=== PATIENT | male | born 1975 | race Caucasian/White ===

== ENCOUNTER 2024-04-18 06:04 | Inpatient (IN) | payer BC, SELFPAY ==
[2024-04-14 09:17] LABS: Hematocrit 40.1 % (39.0-52.0); Hemoglobin 13.7 g/dL (13.0-18.0); Mean Corp Hgb Conc. 34.2 g/dL (33.0-37.0); Mean Corpuscular Hgb 27.6 pg (27.0-31.0); Mean Corpuscular Volume 80.7 fL (80.0-94.0); Mean Platelet Volume 9.5 fL (7.4-10.4); Platelet Count 378 10^3/uL (130-400); Red Blood Cell Count 4.97 10^6/uL (4.70-6.10); White Blood Cell Count 6.8 10^3/uL (4.8-10.8)
[2024-04-14 09:27] LABS: INR 1.02; PT 13.2 Sec (11.4-14.6)
[2024-04-14 09:28] LABS: APTT 30.2 Sec (23.4-35.0)
[2024-04-14 09:55] VITALS: BMI 39.6
[2024-04-14 10:43] LABS: ALT (SGPT) 40 U/L (0-50); AST (SGOT) 31 U/L (17-59); Albumin 4.4 g/dl (3.5-5.0); Alkaline Phosphatase 68 U/L (38-126); Blood Urea Nitrogen 14 mg/dl (9-20); Calcium 9.6 mg/dl (8.4-10.2); Carbon Dioxide 25 mmol/L (22-30); Chloride 106 mmol/L (98-107); Estimated Creatinine Clearance 117 ml/min; Glucose 83 mg/dl (70-99); Potassium 4.5 mmol/L (3.5-5.1); Sodium 139 mmol/L (135-145); Total Bilirubin 0.7 mg/dl (0.2-1.3); Total Protein 6.9 g/dl (6.3-8.2); eGFR > 60.00
[2024-04-18] VITALS (13 sets, daily range): BP systolic 104–144; BP diastolic 61–82; BMI 39.6
[2024-04-18] MEDS: HEPARIN 5000 UNITS SC ×2 (06:53→20:53)
[2024-04-18] MEDS: TYLENOL 1000 MG PO (06:53)
[2024-04-18] MEDS: NEURONTIN 300 MG PO (06:53)
[2024-04-18] MEDS: NORMOSOL-R 1000 IV (06:55)
--- NOTE | 2024-04-18 10:46 | W.IMMPOSTOP ---
Surgical Immed Post Op Note
-
Primary Surgeon: Amado Lee MD
Assisting Surgeon: Nighat Luo
Pre-op Diagnosis: Cecal tumor
Post-op Diagnosis: same
Procedure Performed: Right colectomy
Anesthesia Type: General
Specimen / Cultures: terminal ileum and cecal tumor
Estimated Blood Loss: 15 cc
Complications: None
Operative Findings:Cecal tumor
[2024-04-18] MEDS: D5/0.9% SODIUM CHLORIDE 1000 IV ×2 (11:44→22:15)
[2024-04-18] MEDS: NEURONTIN 100 MG PO ×2 (16:43→22:15)
[2024-04-18] MEDS: COLACE 100 MG PO (20:53)
[2024-04-19] MEDS: ZOFRAN 4 MG IV (02:28)
[2024-04-19 03:17] VITALS: BP 147/80
[2024-04-19] MEDS: COMPAZINE 5 MG IV (07:10)
[2024-04-19] MEDS: ROXICODONE 5 MG PO ×2 (07:10→15:26)
[2024-04-19 07:41] VITALS: BP 158/89
[2024-04-19] MEDS: HEPARIN 5000 UNITS SC ×2 (08:25→20:26)
[2024-04-19] MEDS: COLACE 100 MG PO ×2 (08:25→20:26)
[2024-04-19] MEDS: NEURONTIN 100 MG PO ×3 (08:25→22:45)
[2024-04-19] MEDS: PEPCID 20 MG IV (08:26)
[2024-04-19] MEDS: NSS (PRESERVATIVE FREE) 8 ML IV (08:26)
[2024-04-19] MEDS: D5/0.9% SODIUM CHLORIDE 1000 IV (09:58)
--- NOTE | 2024-04-19 10:40 | CM ---
Reviewed the chart notes and spoke with the patient and his spouse at the bedside. The patient resides with his spouse in a one story home with two steps to enter. The patient reports no DME/VN/SNF in the past. The patient confirmed his pharmacy
of choice is the [facility] [address] [facility]. CM continues to be available to patient/family and is monitoring medical plan for needs at discharge.
Plan: Discharge to home when medically stable. No additional needs anticipated.
[2024-04-19 11:20] VITALS: BP 171/92
[2024-04-19 15:49] VITALS: BP 159/100
--- NOTE | 2024-04-19 16:24 | W.PN.GENERIC ---
Assessment / Plan
-
S/p Right colecotmy POD #1
Stable.
Blood BMs most likely from the anastomosis, which usually stop spontaneously
He is hemodynamcall stable
Will observe
Will check CBC in AM
Will restart his BP meds
OOB and ambulate
Await path
Physician Progress Note
Subjective
NO complaints. Had 3 bloody BMs. No N/V
Objective
Vital Signs
Temp Pulse Resp BP Pulse Ox
98.6 F 92 18 159/100 95
04/19/24 15:49 04/19/24 15:49 04/19/24 15:49 04/19/24 15:49 04/19/24 15:49
Lab Results
04/14/24 07:12
04/14/24 07:12
Abdomen - soft ND NT. Dsg - intact
[2024-04-19 20:30] VITALS: BMI 39.6
[2024-04-19 23:15] VITALS: BP 140/83
[2024-04-20 06:38] LABS: Hematocrit 31.1 % (39.0-52.0); Hemoglobin 10.7 g/dL (13.0-18.0); Mean Corp Hgb Conc. 34.4 g/dL (33.0-37.0); Mean Corpuscular Hgb 27.9 pg (27.0-31.0); Mean Platelet Volume 9.4 fL (7.4-10.4); Platelet Count 308 10^3/uL (130-400); Red Blood Cell Count 3.84 10^6/uL (4.70-6.10); White Blood Cell Count 12.4 10^3/uL (4.8-10.8)
[2024-04-20 07:25] VITALS: BP 137/85
[2024-04-20 09:00] VITALS: BMI 39.6
[2024-04-20] MEDS: HEPARIN 5000 UNITS SC (10:02)
[2024-04-20] MEDS: PEPCID 20 MG IV (10:02)
[2024-04-20] MEDS: NEURONTIN 100 MG PO ×3 (10:03→21:14)
[2024-04-20] MEDS: PROCARDIA XL (EXTENDED RELEASE) 30 MG PO (10:03)
[2024-04-20] MEDS: FLOMAX 0.4 MG PO (10:04)
[2024-04-20] MEDS: NSS (PRESERVATIVE FREE) 8 ML IV (10:04)
[2024-04-20] MEDS: ZESTRIL 40 MG PO (10:04)
[2024-04-20] MEDS: COLACE 100 MG PO ×2 (10:04→21:14)
[2024-04-20] MEDS: ROXICODONE 5 MG PO ×2 (10:06→21:13)
--- NOTE | 2024-04-20 11:08 | CM ---
Reviewed the chart notes and spoke with the patient in the hallway. Patient ambulating ad kourtney. CM continues to be available to patient/family and is monitoring medical plan for needs at discharge.
Plan: Discharge to home when medically stable. No needs anticipated at this time.
[2024-04-20 15:20] VITALS: BP 88/55
[2024-04-20 16:48] LABS: Hematocrit 29.1 % (39.0-52.0); Hemoglobin 9.6 g/dL (13.0-18.0); Mean Corpuscular Hgb 27.4 pg (27.0-31.0); Mean Corpuscular Volume 83.1 fL (80.0-94.0); Mean Platelet Volume 9.9 fL (7.4-10.4); Platelet Count 294 10^3/uL (130-400); Red Cell Dist. Width 13.9 % (11.5-14.5); White Blood Cell Count 12.8 10^3/uL (4.8-10.8)
--- NOTE | 2024-04-20 18:17 | W.PN.GENERIC ---
Addendum entered and electronically signed by Amado Lee MD 05/04/24 08:58:
His GI bleeding with low Hg is due to acute blood loss anemia.
Original Note:
Assessment / Plan
-
S/p right colectomy POD #2
Still with bloody BMS - most likely bleeding from the anastomosis
Hemodynamicall stable even though Hg has drifted down to 9.6
Will give Tranexemic Acid IV
WIll follow Hg
May need colonoscopy and/or surgical exploration if bleeding continues
Physician Progress Note
Subjective
No complaints. Denies abdominal pain, lightheadness, or dizziness. Still having several bloddy BMs
Objective
Vital Signs
Temp Pulse Resp BP Pulse Ox
98.5 F 112 18 88/55 97
04/20/24 15:20 04/20/24 15:20 04/20/24 15:20 04/20/24 15:20 04/20/24 15:20
Lab Results
04/20/24 16:28
04/14/24 07:12
Abdomen - soft ND NT. Dsg - CDI
[2024-04-20 18:45] VITALS: BP 98/64
[2024-04-20 19:39] LABS: Hematocrit 27.7 % (39.0-52.0); Hemoglobin 9.8 g/dL (13.0-18.0); Mean Corp Hgb Conc. 35.4 g/dL (33.0-37.0); Mean Corpuscular Hgb 28.1 pg (27.0-31.0); Mean Corpuscular Volume 79.4 fL (80.0-94.0); Mean Platelet Volume 9.7 fL (7.4-10.4); Platelet Count 295 10^3/uL (130-400); Red Blood Cell Count 3.49 10^6/uL (4.70-6.10); Red Cell Dist. Width 13.9 % (11.5-14.5); White Blood Cell Count 12.8 10^3/uL (4.8-10.8)
[2024-04-20] MEDS: TRANEXAMIC ACID 100 IV (19:50)
[2024-04-20] MEDS: LR 500 IV (19:51)
[2024-04-20 19:55] LABS: INR 1.08
[2024-04-20 19:56] LABS: APTT 28.1 Sec (23.4-35.0)
[2024-04-20 19:57] LABS: Blood Urea Nitrogen 11 mg/dl (9-20); Calcium 8.6 mg/dl (8.4-10.2); Carbon Dioxide 26 mmol/L (22-30); Chloride 103 mmol/L (98-107); Estimated Creatinine Clearance > 125 ml/min; Glucose 120 mg/dl (70-99); Potassium 3.2 mmol/L (3.5-5.1); Sodium 135 mmol/L (135-145); eGFR > 60.00
[2024-04-20 23:36] VITALS: BP 108/63
[2024-04-21] MEDS: LR 500 IV (00:15)
[2024-04-21] MEDS: LR IV ×2 (00:18→10:33)
[2024-04-21] MEDS: TRANEXAMIC ACID 100 IV (04:02)
[2024-04-21] MEDS: ZOFRAN 4 MG IV ×3 (05:05→20:01)
--- NOTE | 2024-04-21 05:12 | PTCARENOTE ---
0500 - while in the bathroom to have a BM, pt also vomited 100mL light green/yellow bilious emesis. Pt was given PRN IV Zofran. Assessment ongoing.
[2024-04-21 05:50] LABS: Hematocrit 27.4 % (39.0-52.0); Hemoglobin 9.4 g/dL (13.0-18.0); Mean Corp Hgb Conc. 34.3 g/dL (33.0-37.0); Mean Corpuscular Hgb 27.6 pg (27.0-31.0); Mean Corpuscular Volume 80.6 fL (80.0-94.0); Mean Platelet Volume 9.7 fL (7.4-10.4); Platelet Count 288 10^3/uL (130-400); Red Cell Dist. Width 13.8 % (11.5-14.5); White Blood Cell Count 11.7 10^3/uL (4.8-10.8)
[2024-04-21 06:17] LABS: Blood Urea Nitrogen 14 mg/dl (9-20); Calcium 8.4 mg/dl (8.4-10.2); Carbon Dioxide 23 mmol/L (22-30); Chloride 103 mmol/L (98-107); Estimated Creatinine Clearance > 125 ml/min; Glucose 117 mg/dl (70-99); Potassium 3.5 mmol/L (3.5-5.1); Sodium 135 mmol/L (135-145); eGFR > 60.00
[2024-04-21 07:35] VITALS: BP 141/80
[2024-04-21] MEDS: COLACE PO (09:08)
[2024-04-21] MEDS: NEURONTIN 100 MG PO (09:09)
[2024-04-21] MEDS: PROCARDIA XL (EXTENDED RELEASE) 30 MG PO (09:09)
[2024-04-21] MEDS: FLOMAX 0.4 MG PO (09:09)
[2024-04-21] MEDS: ZESTRIL 40 MG PO (09:09)
[2024-04-21] MEDS: NSS (PRESERVATIVE FREE) 8 ML IV (09:09)
[2024-04-21] MEDS: PEPCID 20 MG IV (09:10)
--- NOTE | 2024-04-21 10:02 | W.PN.GENERIC ---
Assessment / Plan
-
S/p Right colectomy POD #3
It appears that bleeding has stopped. Hg remains stable and BMs less bloody
OOB and ambulate
If Hg tomorrow remains stable, will consider DC
Physician Progress Note
Subjective
Feeling tired. Had a BM around 5AM, which was less bloody but felt nauseous and vomited. Currently, he had no N/V
Objective
Vital Signs
Temp Pulse Resp BP Pulse Ox
99.0 F 97 18 141/80 93
04/21/24 07:35 04/21/24 07:35 04/21/24 07:35 04/21/24 07:35 04/21/24 07:35
Lab Results
04/21/24 05:37
04/21/24 05:37
Abdomen - mild distension. Incision - CDI
--- NOTE | 2024-04-21 10:49 | CM ---
Reviewed the chart notes. Per notes, possible discharge tomorrow. CM continues to be available to patient/family and is monitoring medical plan for needs at discharge.
Plan: Discharge to home with no anticipated needs.
--- NOTE | 2024-04-21 12:34 | OR.RPT ---
Operative Report
Operative Report
Patient Name: Dandre Acosta Jr
Date of : 1975
Date of Operation: April 18, 2024
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
Postoperative Diagnosis: Same
Surgeon: Amado Lee M.D.
Operation: Right colectomy - 99468
Anesthesia: General
Estimated Blood Loss: 15 cc
Drains: None
Specimen: Terminal ileum and cecum
Complications: �None
Procedure:
The patient was taken to the operating room and placed in the usual supine position. After adequate general endotracheal anesthesia was established, the patient's abdomen was prepped and draped in the usual sterile fashion. At this time, a McBurney
incision was made with a #10 blade, and this was taken through the skin into the subcutaneous tissue. The fascia was divided, and underlying muscles were split along the course of the muscle fibers, and the transversalis fascia and peritoneum were
opened. The abdomen was entered and the cecum and terminal ileum were identified. This was delivered through the incision. Next, the extracorporeal anastomosis was performed by using [id number] and an anastomosis using a HERMAN stapler and #3-0
Prolene in a running fashion. Good hemostasis was obtained at the staple lines. The anastomosis intestine was placed back into the abdomen. At this time, the fascia with the number #1 Vicryl suture in a running fashion. The subcutaneous tissue was
approximately with #3-0 Vicryl in a running fashion. The skin was approximated with #4-0 Monocryl in a running subcutaneous fashion. The Steri-Strips and sterile dressings were applied to the incisions. The patient tolerated the procedure well. The
final instrument, needle, and sponge counts were correct. The patient was transferred to the recovery room.
[2024-04-21] MEDS: D5/0.45%NSS with KCL 20 MEQ 1000 IV ×2 (14:50→22:50)
[2024-04-21 15:30] VITALS: BP 124/71
[2024-04-21 15:57] VITALS: BMI 39.6
[2024-04-21] MEDS: TUMS 1 TABLET PO (23:00)
[2024-04-21 23:37] VITALS: BP 127/70
[2024-04-22 06:13] LABS: Hematocrit 25.7 % (39.0-52.0); Hemoglobin 8.8 g/dL (13.0-18.0); Mean Corp Hgb Conc. 34.2 g/dL (33.0-37.0); Mean Corpuscular Hgb 27.5 pg (27.0-31.0); Mean Corpuscular Volume 80.3 fL (80.0-94.0); Mean Platelet Volume 10.1 fL (7.4-10.4); Platelet Count 281 10^3/uL (130-400); Red Cell Dist. Width 13.7 % (11.5-14.5); White Blood Cell Count 8.5 10^3/uL (4.8-10.8)
[2024-04-22] MEDS: D5/0.45%NSS with KCL 20 MEQ 1000 IV (06:40)
[2024-04-22 07:25] VITALS: BP 111/53
[2024-04-22] MEDS: ZESTRIL PO (07:44)
[2024-04-22] MEDS: PROCARDIA XL (EXTENDED RELEASE) PO (07:44)
[2024-04-22] MEDS: NSS (PRESERVATIVE FREE) 8 ML IV (07:45)
[2024-04-22] MEDS: FLOMAX 0.4 MG PO (07:45)
[2024-04-22] MEDS: PEPCID 20 MG IV (07:45)
--- NOTE | 2024-04-22 11:52 | W.PN.GENERIC ---
Addendum entered and electronically signed by Amado Lee MD 05/04/24 09:00:
His low Hg is multifactorial due to acute blood loss anemia and dilutional with IVF
Original Note:
Assessment / Plan
-
S/p right colectomy POD #4
No obvious evidence of active bleeding
dec Hg from yesterday most likely dilutional with IVF
black tarry stool indicates old blood
Diarrhea and nausea are known side effect of Tranexamic acid - Will continue to observe
Will DC IVF and restart diet
Check Hg tomorrow - if he continues to do well with stable Hg, possible dc home tomorrow
Physician Progress Note
Subjective
Feeling better. His BMs have changed to watery black tarry stool. Nausea better. No vomiting since yesterday
Objective
Vital Signs
Temp Pulse Resp BP Pulse Ox
99.9 F 84 16 111/53 97
04/22/24 07:25 04/22/24 07:25 04/22/24 07:25 04/22/24 07:44 04/22/24 07:25
Lab Results
04/22/24 05:23
04/21/24 05:37
Abdomen - soft, ND, NT. Incisions - CDI
Cor -RRR
Pul - CTA
[2024-04-22 15:18] VITALS: BP 142/74
[2024-04-22] MEDS: ZOFRAN 4 MG IV (17:18)
[2024-04-22 23:19] VITALS: BP 126/71
[2024-04-23 06:17] LABS: Hematocrit 27.3 % (39.0-52.0); Hemoglobin 9.6 g/dL (13.0-18.0); Mean Corp Hgb Conc. 35.2 g/dL (33.0-37.0); Mean Corpuscular Hgb 27.6 pg (27.0-31.0); Mean Corpuscular Volume 78.4 fL (80.0-94.0); Mean Platelet Volume 10.1 fL (7.4-10.4); Platelet Count 335 10^3/uL (130-400); Red Blood Cell Count 3.48 10^6/uL (4.70-6.10); Red Cell Dist. Width 13.5 % (11.5-14.5); White Blood Cell Count 10.6 10^3/uL (4.8-10.8)
[2024-04-23 07:33] VITALS: BP 153/90
[2024-04-23] MEDS: PEPCID 20 MG IV (08:24)
[2024-04-23] MEDS: NSS (PRESERVATIVE FREE) 8 ML IV (08:24)
[2024-04-23] MEDS: FLOMAX 0.4 MG PO (08:25)
[2024-04-23] MEDS: ZESTRIL 40 MG PO (08:25)
[2024-04-23] MEDS: PROCARDIA XL (EXTENDED RELEASE) 30 MG PO (08:25)
--- NOTE | 2024-04-23 10:24 | W.DS.TRANS ---
Addendum entered and electronically signed by Amado Lee MD 05/04/24 09:05:
The final pathology revealed giant inflammatory polyp (2.1 cm) and incidental appendicitis, which are his final diagnoses. There was no mucosal Schwann cell hamartoma, which is not one of the diagnosis.
Original Note:
DC Summary - Cleaning Maid
-
Discharge Instructions:
Sleep Apnea Risk High
Discharge Diagnosis/Procedures Colon tumor
Diet No restrictions
Activity No strenuous activity,As tolerated
Driving Restrictions Not until seen by your Dr
Bathing Restrictions OK to Shower
Instructions:
Stand-Alone Forms:
Changes to Home Medications: No
Discharge Medications:
DC Medications w/original date entered in [employer]
Miralax 1 dose PO PRE OP 04/13/24
Vitamin D3 1 cap PO DAILY Supplement 04/13/24
acetaminophen 650 mg tablet,extended release 1,300 mg PO PRN PRN pain 04/13/24
lisinopril 40 mg tablet 40 mg PO DAILY Blood Pressure 04/13/24
multivitamin with minerals-folic acid 0.4 mg tablet 1 tab PO DAILY Supplement 04/13/24
nifedipine 30 mg tablet,extended release 30 mg PO DAILY Blood Pressure 04/13/24
tamsulosin 0.4 mg capsule 0.4 mg PO DAILY Urinary Issue 04/13/24
vitamin E 400 unit tablet 45 mg PO DAILY Supplement 04/13/24
zinc acetate 50 mg (zinc) capsule 50 mg PO DAILY Supplement 04/13/24
Home Medication Changes
Pending Results: No
--- NOTE | 2024-04-23 13:39 | CM ---
Patient seen at bedside. Patient states that he has no needs for discharge at this time. CM will remain available to follow for discharge needs.
Plan; home with no needs.
--- NOTE | 2024-04-25 13:41 | PN.CDI ---
CDI
- -
CDI:
Physician Documentation Request
Admit Date: 04/18/24 06:04
Dear Doctor Jesus,
Patient admitted with right colon tumor s/p right colectomy.
04/20 PN, HR 112, BP 88/55 'Still with bloody BMS - most likely bleeding from the anastomosis.'
04/22 PN,'dec Hg from yesterday most likely dilutional with IVF.
04/14 Hgb 13.7
04/23 Hgb 9.6
Please provide in your note the likely etiology/ etiologies of decreased Hgb:
Multifactorial due to acute blood loss anemia and dilutional with IVF
Acute blood loss anemia only
Dilutional from IVF only
Other
Use of terms such as suspected, likely, concern for, or probable (associated with a specific diagnosis that is being evaluated, monitored, or treated as if it exists) are acceptable and can be coded in the inpatient setting, when documented at the
time of discharge.
Thank you,
Zee MENDEZ,RN,CCDS
CDI Specialist
Available via [employer] text
Please use your independent medical judgment in providing your response.
--- NOTE | 2024-04-25 15:35 | PN.CDI ---
Addendum entered and electronically signed by Alicia Nielson 04/28/24 08:15:
Please, disregard this query, made by mistake
Original Note:
CDI
- -
CDI:
Physician Documentation Request
Admit Date: [f_Reg Admit Date Time]
Dear Doctor Jesus
Please review the following and provide your response in the progress notes.
Clinical Indicators:
The diagnosis of Inflammatory polyp and Focal acute appendicitis was included in the signed Path report
Additional clinical indicators in the chart include:
A. Terminal ileum and cecum, resection:
� Giant inflammatory polyp (2.1 cm).
� Colonic mucosa with hyperplastic changes.
� Focal acute appendicitis.
� Three benign lymph nodes.
� Viable resection margins.
Please indicate in your progress notes if you are in agreement that the above diagnosis is valid for this patient:
____ Inflammatory colon polyp is a valid diagnosis (Please include it in your progress notes)
Acute appendicitis is a valid diagnosis (Please include it in your progress note)
____ Inflammatory colon polyp is not a valid diagnosis for this patient
Acute appendicitis is not a valid diagnosis for this patient
____ Inflammatory colon polyp is not yet confirmed but remains a suspected condition
Acute appendicitis is not yet confirmed but remains a suspected condition
____ - Other
Use of terms such as suspected, likely, concern for, or probable are acceptable for a diagnosis that is being evaluated, monitored or treated as if it exists and can be coded in the inpatient setting, when documented at the time of discharge.
Thank you,
[f_Mis Current User]
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
Please use your independent medical judgment in providing your response.
--- NOTE | 2024-04-26 13:40 | PN.CDI ---
CDI
- -
CDI:
Physician Documentation Request
Admit Date: [f_Reg Admit Date Time]
Dear Doctor Jesus
Please review the following and provide your response in the progress notes.
Clinical Indicators:
The diagnosis of Focal Acute Appendicitis was included in the signed path report.
A. Terminal ileum and cecum, resection:
� Giant inflammatory polyp (2.1 cm).
� Colonic mucosa with hyperplastic changes.
� Focal acute appendicitis.
� Three benign lymph nodes.
� Viable resection margins.
Please indicate in your progress notes if you are in agreement that the above diagnosis is valid for this patient:
____ Acute Appendicitis is a valid diagnosis (Please include it in your progress notes)
____ Acute Appendicitisis not a valid diagnosis for this patient
__ Acute Appendicitis is not yet confirmed but remains a suspected condition
____ Other
Use of terms such as suspected, likely, concern for, or probable are acceptable for a diagnosis that is being evaluated, monitored or treated as if it exists and can be coded in the inpatient setting, when documented at the time of discharge.
Thank you,
[f_Mis Current User]
[facility] Inpatient
Please use your independent medical judgment in providing your response.
--- NOTE | 2024-04-28 08:23 | PN.CDI ---
CDI
- -
CDI:
Physician Documentation Request
Admit Date: [f_Reg Admit Date Time]
Dear Doctor Jesus
Please review the following and provide your response in the progress notes.
Clinical Indicators:
DS: History: Patient was found to have a cecal tumor on a routine colonoscopy. The
biopsy revealed findings suspicious for a mucosal Schwann cell
hamartoma.
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
Additional clinical indicators in the chart include:
Path report
A. Terminal ileum and cecum, resection:
� Giant inflammatory polyp (2.1 cm).
� Colonic mucosa with hyperplastic changes.
� Focal acute appendicitis.
� Three benign lymph nodes.
� Viable resection margins.
Please indicate in your progress notes if you are in agreement that the above diagnosis is valid for this patient:
____Schwann cell harmatoma of the cecum is a valid diagnosis (Please include it in your progress notes)
_ Schwann cell harmatoma of the cecum is not a valid diagnosis for this patient
____ Schwann cell harmatoma of the cecum is not yet confirmed but remains a suspected condition
Infalmmatory polyp of the cecum is a valid diagnosis
Inflammatory polyp of the cecum is not a valid diagnosis
____ - Other
Use of terms such as suspected, likely, concern for, or probable are acceptable for a diagnosis that is being evaluated, monitored or treated as if it exists and can be coded in the inpatient setting, when documented at the time of discharge.
Thank you,
Alicia Nielson
[employer]otor [employer] Representative Inpatient
Please use your independent medical judgment in providing your response.
== END 2024-04-23 11:20 | disposition home or self-care (01) | DRG 330 ==
LOC: 2 SOUTH 06:04
PROVIDERS: ADMITTING PHYSICIAN Surgery; FAMILY PHYSICIAN Internal Medicine
PROC: 0DBB0ZZ Excision of Ileum, Open Approach (ICD-10-PCS; 2024-04-18)
PROC: 0DTH0ZZ Resection of Cecum, Open Approach (ICD-10-PCS; 2024-04-18)
DX: K51.40 Inflammatory polyps of colon without complications (principal); D62 Acute posthemorrhagic anemia; K91.840 Postprocedural hemorrhage of a digestive system organ or structure following a digestive system procedure; K37 Unspecified appendicitis; E21.3 Hyperparathyroidism, unspecified; I10 Essential (primary) hypertension; Z79.899 Other long term (current) drug therapy; Z85.820 Personal history of malignant melanoma of skin; Y83.2 Surgical operation with anastomosis, bypass or graft as the cause of abnormal reaction of the patient, or of later complication, without mention of misadventure at the time of the procedure
CPT/HCPCS: 88309; 36415; 80048; 80053; 85027; 85610; 85730; 86850; 86900; 86901; 87070; 87147; 93005

== ENCOUNTER 2024-04-25 22:14 | Inpatient (IN) | payer BC, SELFPAY ==
[2024-04-25] VITALS (8 sets, daily range): BP systolic 109–151; BP diastolic 69–86; BMI 36.5; BMI 36.2
[2024-04-25 17:30] LABS: % Basophils 0.3 % (0-2); % Eosinophils 0.6 % (0-6); % Lymphocytes 6.5 % (20.5-51.1); % Monocytes 10.4 % (1.7-9.3); % Neutrophils 79.2 % (42.2-75.2); Absolute Basophils 0.1 10^3/uL (0-0.2); Absolute Eosinophils 0.1 10^3/uL (0-0.7); Absolute Immature Granulocytes 0.5 10^3/uL (0-0.05); Absolute Lymphocytes 1.1 10^3/uL (1.2-3.4); Absolute Monocytes 1.8 10^3/uL (0.1-0.6); Absolute Neutrophils 13.4 10^3/uL (1.4-6.5); Hematocrit 27.2 % (39.0-52.0); Hemoglobin 9.5 g/dL (13.0-18.0); Mean Corp Hgb Conc. 34.9 g/dL (33.0-37.0); Mean Corpuscular Hgb 27.4 pg (27.0-31.0); Mean Corpuscular Volume 78.4 fL (80.0-94.0); Mean Platelet Volume 9.9 fL (7.4-10.4); Nucleated Red Blood Cells % 0.2 % (-); Platelet Count 475 10^3/uL (130-400); Red Blood Cell Count 3.47 10^6/uL (4.70-6.10); Red Cell Dist. Width 13.7 % (11.5-14.5)
[2024-04-25 17:48] LABS: ALT (SGPT) 38 U/L (0-50); AST (SGOT) 27 U/L (17-59); Albumin 3.5 g/dl (3.5-5.0); Alkaline Phosphatase 97 U/L (38-126); Blood Urea Nitrogen 15 mg/dl (9-20); Calcium 8.8 mg/dl (8.4-10.2); Carbon Dioxide 23 mmol/L (22-30); Chloride 96 mmol/L (98-107); Estimated Creatinine Clearance > 125 ml/min; Glucose 104 mg/dl (70-99); Potassium 3.1 mmol/L (3.5-5.1); Sodium 133 mmol/L (135-145); Total Bilirubin 0.9 mg/dl (0.2-1.3); eGFR > 60.00
[2024-04-25 18:01] LABS: Lipase 93 U/L (23-300)
--- NOTE | 2024-04-25 18:20 | ED.GENMED ---
History of Present Illness
General
Chief Complaint: Bowel Problem
Source: patient
Exam Limitations: none
Time Seen by Provider: 04/25/24 17:55
History of Present Illness
History of Present Illness:
This is a 48 year old male that comes in with c/o feeling like he has a bowel obstruction. States that he has surgery last Wednesday for a bowel resection. States that he has not had a BM in a week and he is unable to keep anything down. States that
he call the surgeon yesterday and was told to go back on liquid diet which he did but he can't keep this down. States that he started with pain yesterday. States that he is nauseated and vomiting. Denies any fever, chills, chest pain, SOB,
diarrhea, headache, dizziness, urinary burning.
Past History
Past History
ED Past Medical History: Cancer (Skin CA Melanoma) and HTN
ED Past Surgical History: Appendectomy, Bowel resection (colon Mass) and Other (Partial parathyroidectomy, Adenoids removed)
Social History
Tobacco: Non-smoker
Alcohol: Occasional
Personal:
Living: with family
Review of Systems
Review of Systems
All Other Systems: ROS reviewed and negative except as documented in HPI and ROS
Constitutional: Reports no symptoms; Denies fever or chills
EENT: Reports no symptoms
Respiratory: Reports no symptoms; Denies cough or trouble breathing
Cardiac: Reports no symptoms; Denies chest pain
ABD/GI: Reports abdominal pain, nausea, vomiting and constipated; Denies diarrhea
: Reports no symptoms; Denies dysuria, frequency or urgency
Musculoskeletal: Reports no symptoms
Neurological: Reports no symptoms
Psychiatric: Reports no symptoms
Phy Exam
General Physical Exam
General Presentation: no apparent distress (Refused pain medication at this time. )
General age: appears stated age
General Skin: warm and dry
General Habitus: normal
General Mental: alert
General Hydration: dry mucous membranes
ENT Exam
ENT Exam: TM's normal, pharynx normal and neck supple
Eye Exam
Eye Exam: EOMI
Cardiovascular Exam
Cardiovascular Exam: no edema, no murmur, normal peripheral pulses and tachycardia
Pulmonary Exam
Pulmonary Exam: lungs clear, no respiratory distress, no rales, chest non tender, no crackles, no rhonchi, no wheezing and no cough
Gastrointestinal Exam
Gastrointestinal Exam: soft, no organomegaly, no pulsatile mass, non distended, tender (Epigastric area and right sided tenderness with palpation) and other (Hypoactive bowel sounds)
Musculoskeletal Exam
Musculoskeletal Exam: full ROM and no edema
Skin Exam
Skin Exam: normal color, warm/dry, no rash, no petechia and other (Right lower abd incision line clean and dry with steri strips intact. Small left sided incision dry and clean with steri strips intact)
Psychiatric Exam
Psychiatric Exam: normal mood/affect
Course
Orders/Labs/Results
Orders:
Orders
04/25/24 17:18
Type+Screen Urgent
Complete Blood Count/With Diff Urgent
Comprehensive Metabolic Panel Urgent
Lipase Urgent
04/25/24 18:19
0.9% Sodium Chloride 1000 ml [Nss] 1,000 ml IV BOLUS
Ondansetron Injectable [Zofran] 4 mg IV NOW STA
04/25/24 18:20
CT Abd/pelvis W Iv Cont Urgent
Comment: Bowel resection last Wednesday
Reason For Exam: Abd pain
04/25/24 19:18
HYDROmorphone [Dilaudid] 1 mg IV NOW STA
04/25/24 19:25
Lactic Acid Urgent
04/25/24 19:42
Piperacillin/Tazo 3.375 Gram [Zosyn] 3.375 gram in 50 ml IV NOW
Abnormal Lab Results
04/25/24
17:18
WBC 17.0 H 10^3/uL
(4.8-10.8)
RBC 3.47 L 10^6/uL
(4.70-6.10)
Hgb 9.5 L g/dL
(13.0-18.0)
Hct 27.2 L %
(39.0-52.0)
MCV 78.4 L fL
(80.0-94.0)
Plt Count 475 H D 10^3/uL
(130-400)
Abs Immat Gran (auto) 0.5 H 10^3/uL
(0-0.05)
Absolute Neuts (auto) 13.4 H 10^3/uL
(1.4-6.5)
Absolute Lymphs (auto) 1.1 L 10^3/uL
(1.2-3.4)
Absolute Monos (auto) 1.8 H 10^3/uL
(0.1-0.6)
Immature Gran % 3.0 H %
(0-0.5)
Neutrophils % 79.2 H %
(42.2-75.2)
Lymphocytes % 6.5 L %
(20.5-51.1)
Monocytes % 10.4 H %
(1.7-9.3)
Sodium 133 L mmol/L
(135-145)
Potassium 3.1 L mmol/L
(3.5-5.1)
Chloride 96 L mmol/L
(98-107)
Glucose 104 H mg/dl
(70-99)
Total Protein 6.0 L g/dl
(6.3-8.2)
04/25/24 17:18
04/25/24 17:18
Leukocytosis, H/H low but consistent with prior labs, Hyponatremia, Hyperkalemia, Chloride low Slight Hyperglycemia, Total protein low. Lipase normal at 93, Lactic acid normal at 0.9
Vital Signs
Initial and Last Documented VS:
Initial Vital Signs
Temp Pulse Resp BP Pulse Ox
98.9 F 125 20 109/69 98
04/25/24 16:51 04/25/24 16:51 04/25/24 16:51 04/25/24 16:51 04/25/24 16:51
Last Documented Vital Signs
Temp Pulse Resp BP Pulse Ox
98.5 F 94 16 125/72 95
04/25/24 17:25 04/25/24 19:45 04/25/24 19:45 04/25/24 19:11 04/25/24 19:45
MDM/Problems Addressed
Differential Diagnosis Includes:
Bowel obstruction, Constipation
MDM/Problems Addressed:
This is a 48 year old male that comes in with c/o feeling like he has a bowel obstruction. States that he is unable to keep anything down and he started with pain yesterday.
Will get labs and CT scan. Will give IV fluids and medicate with antiemetic.
Back into see patient. Explained that his CT shows that this could be a bowel obstruction or infection. There is about 3 other possibilities. Will admit patient and start IV antibiotics. Message sent to Dr. Flores and will await to see of he can go
on surgeries Service.
Spoke with Dr. Flores. Dr. Lee is not on here service. Called Dr. Amado Lee and he will admit patient to his service and have the [employer] write orders. Will be NPO, would Gi consult and given antibiotic.
Chronic conditions affecting care: Previous abdomnial surgery
Acute Exacerbation and/or Progression of Chronic Illness: Previous abdomnial surgery
*Radiology
Radiology exam reviewed: radiology read reviewed (CT-Moderate circumferential wall thicening and submucosal edema throughout a long segment of ileal small bowel in the right lower quadrant of the abdomen located proximal to an ileocolnic
anastomosis. Diagnostic possibilities are (1) acute small bowel ischemia, (2) acute inflammatory bowel disease,,), all reviewed NAD by ED Provider (CT cont- (3) an acute infectious ileitus, (4) acute angioedema, or (5) acute vasculitis/connective
tissue disease. Moderate fluid distention of more proximal small bowel loops demonstrate mucosal hyperenhancement which could be secondary to an acute infectious enteritis or ileus. Small volume of abd) and other (Ct cont- and pelvic ascites.
Recent right hemicolectomy. Moderate diffuse hepatic steatosis and mild hepatomegaly. Moderate to severe enlargement of the prostate gland. )
*Pulse Oximetry
Patient hypoxic: no
*EKG
Interpreted by ED Provider?: NA
Rate: EKG- N/A
*Chief Of Staff Interpretation
Rate: Chief Of Staff- N/A
*Critical Care Note
Total Time (30-74mins, 75-104mins- exclusive of procedures): Not Applicable
ED Attending Note
-
Portions of this chart may have been created with voice recognition software.� Occasional wrong word or��sound alike� substitutions may have occurred due to the inherent limitations of voice recognition software.
Discharge Plan
Departure
Patient Disposition: Admit
Date of Disposition: 04/25/24
Time of Disposition: 20:37
Admit to: Med/Surg
Presentation/result/management discussed w/ accepting MD/DO: Dr. Amado Lee
Patient with high blood pressure during this ER visit?: No
Condition: Good
Covid-19: Not Applicable
Discharge Problem:
Abdominal pain, Possible bowel obstruction, Vs Infection
Prescriptions:
No Action
zinc acetate 50 mg (zinc) Capsule
50 mg PO DAILY
nifedipine 30 mg Tablet Extended Release
30 mg PO DAILY
acetaminophen 650 mg Tablet Extended Release
1,300 mg PO DAILYPRN PRN (Reason: mild pain)
tamsulosin 0.4 mg Capsule
0.4 mg PO DAILY
lisinopril 40 mg Tablet
40 mg PO DAILY
cholecalciferol (vitamin D3) [Vitamin D3] 25 mcg (1,000 unit) Tablet
25 mcg PO DAILY Qty: 0
multivit with min-folic acid 0.4 mg Tablet
1 tab PO DAILY
vitamin E 268 mg (400 unit) Capsule
268 mg PO DAILY
Referrals:
Srinivas Liang MD [Family Provider] -
Interventions
Interventions:
*Risk Screen - Suicide Last Done: 04/25/24 16:51
*General Assessment Last Done: 04/25/24 16:51
*Neglect/Abuse Screening Last Done: 04/25/24 16:51
ED- Fall Risk Assessment Last Done: 04/25/24 17:13
*ED COVID-19 Vaccine History Last Done: 04/25/24 17:11
[facility] Assessment Last Done: 04/25/24 17:12
Discharge Date and Time
Print Language: CITIZEN OF [place]
[2024-04-25] MEDS: ZOFRAN 4 MG IV (18:23)
[2024-04-25] MEDS: NSS 1000 IV ×2 (18:23→23:14)
[2024-04-25] MEDS: DILAUDID 1 MG IV (19:23)
[2024-04-25 19:50] LABS: Lactic Acid 0.9 mmol/L (0.7-2.0)
[2024-04-25] MEDS: ZOSYN 50 IV (19:53)
[2024-04-25] MEDS: KCL 270 MEQ IV (22:23)
[2024-04-25] MEDS: DILAUDID 0.5 MG IV (23:13)
--- NOTE | 2024-04-25 23:30 | PTCARENOTE ---
Pt. arriving from ED via stretcher and able to walk to room bed with steady gait. Pt. A&Ox3, in NAD, states pain in LLQ 5/10, even and unlabored breathing on RA, and VSS. Pt. oriented to room and unit policies, belongings and call light within
reach, bed locked and in lowest position, side rails in place. Questions/concerns of pt. and addressed at time of assessment.
--- NOTE | 2024-04-26 00:39 | HPS.HSE ---
Family Physician
-
Family Physician: Srinivas Liang
Chief Complaint
-
'abdomen discomfort'
History of Present Illness
48 y/o patient with recent bowel resection (colon mass), Skin cancer, Appendectomy, Partial parathyroidectomy, Adenoids removal, presents with the c/o feeling like he is having a bowel obstruction. Reports he had Bowel resection on last Wednesday.
Discharge was delayed due to GI bleed and was discharged on Wednesday. He been nauseous and been vomiting dark green color bile since Wednesday and unable to keep anything down. Last BM was a week ago on Wednesday prior to surgery. At present patient denies
any chills, fever, chest pain, SOB, abdomen pain or Diarrhea. Reports nausea and abdomen has subsided after the medication received in ER.
Medical History
Past Medical History
Past Medical History: Reports HTN
Past Surgical History: Reports Appendectomy and Bowel Resection
Social History
Tobacco: Non-smoker
Alcohol: Occasional
Drug: None
Personal:
Living: With Family
Family History
Family History: Not pertinent
Allergies / Home Medications
Allergies reflects when Allergies were last updated in [facility].
Home Medications with original date entered in [employer]
Allergy/Medication List:
Allergies
Allergy/AdvReac Type Severity Reaction Status Date / Time
tranexamic acid AdvReac Intermediate Nausea / Verified 04/25/24 23:03
Vomiting
Home Medications
acetaminophen 650 mg tablet,extended release 1,300 mg PO DAILYPRN PRN mild pain 04/13/24
cholecalciferol (vitamin D3) 25 mcg (1,000 unit) tablet (Vitamin D3) 25 mcg PO DAILY Supplement ##0 04/13/24
lisinopril 40 mg tablet 40 mg PO DAILY Blood Pressure 04/13/24
multivitamin with minerals-folic acid 0.4 mg tablet 1 tab PO DAILY Supplement 04/13/24
nifedipine 30 mg tablet,extended release 30 mg PO DAILY Blood Pressure 04/13/24
tamsulosin 0.4 mg capsule 0.4 mg PO DAILY Urinary Issue 04/13/24
zinc acetate 50 mg (zinc) capsule 50 mg PO DAILY Supplement 04/13/24
vitamin E 268 mg (400 unit) capsule 268 mg PO DAILY 04/25/24
Review of Systems
-
History Source: Patient
Constitutional: Reports No Symptoms
EENT: Reports No Symptoms
Respiratory: Reports No Symptoms
Cardiac: Reports No Symptoms
Abdomen/GI: Reports Abdominal Pain, Nausea and Vomiting
: Reports No Symptoms
Musculoskeletal: Reports No Symptoms
Skin: Reports No Symptoms
Neurological: Reports No Symptoms
Endocrine: Reports No Symptoms
Hematologic/Lymphatic: Reports No Symptoms
Psych: Reports No Symptoms
Physical Exam
Vital Signs
Vital Signs
Temp Pulse Resp BP Pulse Ox
99.3 F 109 18 151/86 97
04/25/24 23:10 04/25/24 23:10 04/25/24 23:10 04/25/24 23:10 04/25/24 23:10
Physical Exam
General: Well Developed, Well Nourished and No Apparent Distress
HEENT: NormoCephalic, Moist mucous membranes and Atraumatic
Respiratory: Clear and Non Labored Respirations
Cardiac: S1/S2 and Regular Rhythm
Breast: Deferred by me
GI: Soft, Non Tender (Tender at RLQ) and Normal Bowel Sounds
Rectal: Deferred by Provider
Genito-urinary: Deferred by me
Musculoskeletal: No Clubbing, No Cyanosis and No Edema
Skin: Warm and Other (Right side abdomen incision with steri-strips, CDI )
Neuro: Awake, AO x 3 and Nonfocal/grossly intact
Hematologic/Lymphatic: No Lymphadenopathy
Psych: Calm and Intact Judgment/Insight
Laboratory Results
-
Laboratory Results
Lactic Acid 0.9 mmol/L (0.7-2.0) 04/25/24 19:25
Total Bilirubin 0.9 mg/dl (0.2-1.3) 04/25/24 17:18
AST 27 U/L (17-59) 04/25/24 17:18
ALT 38 U/L (0-50) 04/25/24 17:18
Alkaline Phosphatase 97 U/L (38-126) 04/25/24 17:18
Lipase 93 U/L (23-300) 04/25/24 17:18
Data Reviewed
-
CT Scan: Report Reviewed by me
Lab Data: Labs Reviewed by me
Impression/Plan
-
48 y/o patient with abdomen pain, nausea, and vomiting
# Abdomen pain likely due to possible Bowel Obstruction, infection
- CT abdomen/pelvis: Moderate circumferential wall thickening and submucosal edema throughout a long segment of ileal small bowel in the right lower quadrant of the abdomen located proximal to an ileocolonic anastomosis.
-WBC 17.0
-Recent partial bowel resection due to colon mass
-Continue NSS
-Continue Zosyn
-NPO
-Labs in AM
#Hypokalemia
-K 3.1
-KCL 40meq IV once
-labs in AM
#HTN
-continue Nifedipine
-Continue Lisinopril
# Prostate problems
-Continue Flomax
Full Code
DVT Prophylaxis: SCD's
[2024-04-26] MEDS: ZOSYN 50 IV ×4 (02:33→20:15)
[2024-04-26 05:29] LABS: % Basophils 0.3 % (0-2); % Eosinophils 1.4 % (0-6); % Lymphocytes 8.8 % (20.5-51.1); % Monocytes 10.7 % (1.7-9.3); % Neutrophils 74.8 % (42.2-75.2); Absolute Eosinophils 0.2 10^3/uL (0-0.7); Absolute Immature Granulocytes 0.5 10^3/uL (0-0.05); Absolute Lymphocytes 1.2 10^3/uL (1.2-3.4); Absolute Monocytes 1.4 10^3/uL (0.1-0.6); Absolute Neutrophils 9.8 10^3/uL (1.4-6.5); Hematocrit 25.5 % (39.0-52.0); Hemoglobin 8.6 g/dL (13.0-18.0); Mean Corp Hgb Conc. 33.7 g/dL (33.0-37.0); Mean Corpuscular Volume 79.9 fL (80.0-94.0); Mean Platelet Volume 10.1 fL (7.4-10.4); Nucleated Red Blood Cells % 0 % (-); Platelet Count 462 10^3/uL (130-400); Red Blood Cell Count 3.19 10^6/uL (4.70-6.10); Red Cell Dist. Width 13.7 % (11.5-14.5); White Blood Cell Count 13.1 10^3/uL (4.8-10.8)
[2024-04-26 05:55] LABS: ALT (SGPT) 31 U/L (0-50); AST (SGOT) 22 U/L (17-59); Alkaline Phosphatase 83 U/L (38-126); Blood Urea Nitrogen 16 mg/dl (9-20); Calcium 8.2 mg/dl (8.4-10.2); Carbon Dioxide 27 mmol/L (22-30); Chloride 101 mmol/L (98-107); Estimated Creatinine Clearance 114 ml/min; Glucose 94 mg/dl (70-99); Magnesium 2.6 mg/dl (1.6-2.3); Potassium 4.1 mmol/L (3.5-5.1); Sodium 137 mmol/L (135-145); Total Bilirubin 0.8 mg/dl (0.2-1.3); Total Protein 5.5 g/dl (6.3-8.2); eGFR > 60.00
[2024-04-26 07:08] VITALS: BP 117/71
[2024-04-26] MEDS: PROCARDIA XL (EXTENDED RELEASE) PO ×2 (07:37→08:27)
[2024-04-26] MEDS: FLOMAX PO ×2 (07:37→08:27)
[2024-04-26] MEDS: ZESTRIL PO ×2 (07:37→08:28)
--- NOTE | 2024-04-26 08:43 | CON.GS ---
Consultation
-
Date/Time Consultation Requested: 04/25/24
Date/Time Consultation Performed: 04/26/24 0843
Requesting Provider: Jesus
Performing Provider: Constantine
Medical History
-
Chief Complaint: Nausea and vomitting post surgery
History of Present Illness:
48 Y/O male pt of Dr. Amado Lee who had cecectomy 04/18/24. Pathology shows an inflamed 5cm ulcerated lesion, benign, pathologist is favoring possible inflammatory bowel disease although patient has never been diagnosed with that. Post-operatively the
patient had bleeding and was given two doses of tranexamic acid and the bleeding appeared to stop. He was set for discharge and experienced fever and hypotension and was kept in for 2 more days. He was able to tolerate PO intake when discharged, but
yesterday he developed nausea and vomiting and when unable to keep down liquids he presented to the ED.
Past Medical History
Past Medical History: HTN and Other (hyperparathyroidism, BPH)
Past Surgical History: Reviewed & Noncontributory
Social History
Alcohol: None
Personal:
Living: With Family
Family History
Family History: Reviewed & Not Pertinent
Allergies / Home Medications
Allergy/AdvReac Type Severity Reaction Status Date / Time
tranexamic acid AdvReac Intermediate Nausea / Verified 04/25/24 23:03
Vomiting
�Medication �Instructions �Recorded �Confirmed �Type
acetaminophen 650 mg 1,300 mg PO DAILYPRN PRN mild pain 04/13/24 04/25/24 History
tablet,extended release
cholecalciferol (vitamin D3) 25 25 mcg PO DAILY Supplement ##0 04/13/24 04/25/24 History
mcg (1,000 unit) tablet (Vitamin
D3)
lisinopril 40 mg tablet 40 mg PO DAILY Blood Pressure 04/13/24 04/25/24 History
multivitamin with minerals-folic 1 tab PO DAILY Supplement 04/13/24 04/25/24 History
acid 0.4 mg tablet
nifedipine 30 mg tablet,extended 30 mg PO DAILY Blood Pressure 04/13/24 04/25/24 History
release
tamsulosin 0.4 mg capsule 0.4 mg PO DAILY Urinary Issue 04/13/24 04/25/24 History
zinc acetate 50 mg (zinc) capsule 50 mg PO DAILY Supplement 04/13/24 04/25/24 History
vitamin E 268 mg (400 unit) capsule 268 mg PO DAILY Supplement 04/25/24 04/25/24 History
Review of Systems
-
History Source: Patient and Family
All other systems: Negative unless noted
Abdomen/GI: Other (loose stools this am)
A 10 point review of systems was completed, and was negative except as per HPI.
Physical Exam
Vital Signs
Temp Pulse Resp BP Pulse Ox
99.1 F 97 17 117/71 95
04/26/24 07:08 04/26/24 07:08 04/26/24 07:08 04/26/24 07:08 04/26/24 07:08
04/25/24 04/26/24 04/27/24
06:59 06:59 06:59
Actual Weight 92.788 kg
Body Mass Index (BMI) 36.2
Lab Results
04/26/24 04:43
04/26/24 04:43
WBC 13.1 10^3/uL (4.8-10.8) H 04/26/24 04:43
Hgb 8.6 g/dL (13.0-18.0) L 04/26/24 04:43
Hct 25.5 % (39.0-52.0) L 04/26/24 04:43
Plt Count 462 10^3/uL (130-400) H 04/26/24 04:43
Abs Immat Gran (auto) 0.5 10^3/uL (0-0.05) H 04/26/24 04:43
Neutrophils % 74.8 % (42.2-75.2) 04/26/24 04:43
Physical Exam
General: Well Developed, Well Nourished and No Apparent Distress
HEENT: Normocephalic and Anicteric
Respiratory: Clear
Cardiac: Regular Rhythm
GI: Soft and Tender (at incision site, incisions healing well)
Musculoskeletal: No Clubbing and No Cyanosis
Skin: Warm and Dry
Neuro: Awake, Alert and Oriented
Psych: Calm
Data Reviewed
-
Radiology: Image Personally Visualized and interpreted and Report Reviewed by me
CT Scan: Image Personally Visualized and interpreted and Report Reviewed by me
Labs: Labs Reviewed by me, Discussed with Physician and Discussed with Patient
Total Time Spent with Patient (in minutes): 20
Assessment / Plan
-
Nausea and vomiting post-op cecectomy and use of tranexemic acid. Diffuse small bowel thickening and question of inflammatory bowel disease on pathology. Will keep NPO but ok for ice chips. GI will see and comment. Hopefully, can advance diet and
D/C antibiotics. Discussed with Dr. Lee.
[2024-04-26] MEDS: NSS 1000 IV (12:23)
[2024-04-26] MEDS: ZOFRAN 4 MG IV (12:23)
--- NOTE | 2024-04-26 13:18 | CON.GI ---
Addendum entered and electronically signed by Romaine Hamilton MD 04/26/24 15:52:
Patient seen and examined, agree with resident note. 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
inflammatory polyp. I discussed personally with pathology, there were no signs inflammatory bowel disease, but the presence of inflammatory polyp raise the question of underlying inflammatory bowel disease. Prior to this he had no significant GI
symptoms or family history of inflammatory bowel disease. He had some bleeding postoperatively and received tranexamic acid and had cessation of bleeding. After discharge he has had increasing abdominal girth, nausea with bilious emesis, multiple
large amounts. He is having small amounts of loose stool, though no flatus and only small amounts. On exam he has increased tympany, no significant bowel sounds, there was soft with only mild diffuse tenderness, no rebound. CT scan does show
significant enteritis and a significant distal segment of neoterminal ileum to the level of the anastomosis, with significant proximal dilation and air-fluid levels. At this point the most likely cause of significant enteritis would be ischemia at
the anastomosis. There is no other suggestion inflammatory bowel disease either grossly or histologically, and acute inflammatory bowel disease, infectious enteritis or other etiology seems much less likely. He is not toxic and again has no
rebound or severe tenderness on exam. I discussed with surgery, will place NG tube and continue supportive care, IV fluids, antibiotics and will continue to monitor for now.
Original Note:
Consultation
-
Date/Time Consultation Requested: 04/26/24
Date/Time Consultation Performed: 04/26/24
Reason for Consultation: abdominal pain, nausea, vomiting
Medical History
Chief Complaint / HPI
Chief Complaint: abdominal pain, nausea, vomiting
History of Present Illness:
Mr. Acosta is a 48 year old male who underwent right colectomy (04/18/24) for definitive diagnosis of 5cm colon mass originally identified via screening colonoscopy, and now presents to the hospital with abdominal pain, nausea, vomiting. His
postoperative course was notable for GI bleeding, which was treated with tranexamic acid, and he was discharged home on 04/23/24. At home, he developed intermittent abdominal pain approximately 2-3 times per day lasting 15 minutes, which he has not
experienced today. He has also had dark green watery vomit 2-3 times per day and has been unable to tolerate PO diet or sips of water. He notes his last solid bowel movement was prior to surgery, and he is now having diarrhea 2-3 times per day. He
denies blood in vomit/stools, black stools, fevers, chills. He reported light headedness at home with ambulation, which has resolved since admission. Prior to surgery, he was in his usual state of health and felt well overall; he notes that the
colon mass and hyperparathyroidism were found incidentally during routine screening.
Past Medical History
Past Medical History: HTN and Other (colon mass, hyperparathyroidism, dysplastic melanoma of L hand, BPH)
Past Surgical History: Appendectomy, Bowel Resection (right colectomy 04/18/24) and Other (partial parathyroidectomy (11/2023), L hand melanoma excision/radiation (05/2023), adenoid removal)
Social History
Tobacco: Non-Smoker
Alcohol: Occasional (1-2 drinks per month)
Drug: None
Family History
Family History: Cancer (bladder cancer, breast cancer) and Other (NO fam hx of colorectal cancer, IBD)
Allergies / Home Medications
Allergy/AdvReac Type Severity Reaction Status Date / Time
tranexamic acid AdvReac Intermediate Nausea / Verified 04/25/24 23:03
Vomiting
�Medication �Instructions �Recorded
acetaminophen 650 mg 1,300 mg PO DAILYPRN PRN mild pain 04/13/24
tablet,extended release
cholecalciferol (vitamin D3) 25 25 mcg PO DAILY Supplement ##0 04/13/24
mcg (1,000 unit) tablet (Vitamin
D3)
lisinopril 40 mg tablet 40 mg PO DAILY Blood Pressure 04/13/24
multivitamin with minerals-folic 1 tab PO DAILY Supplement 04/13/24
acid 0.4 mg tablet
nifedipine 30 mg tablet,extended 30 mg PO DAILY Blood Pressure 04/13/24
release
tamsulosin 0.4 mg capsule 0.4 mg PO DAILY Urinary Issue 04/13/24
zinc acetate 50 mg (zinc) capsule 50 mg PO DAILY Supplement 04/13/24
vitamin E 268 mg (400 unit) capsule 268 mg PO DAILY Supplement 04/25/24
Review of Systems
-
History Source: Patient
All other systems: A 12 pt ROS was Negative except as stated above in HPI
Vital Signs
Temp Pulse Resp BP Pulse Ox
99.1 F 97 17 117/71 95
04/26/24 07:08 04/26/24 07:08 04/26/24 07:08 04/26/24 07:08 04/26/24 07:08
Physical Exam
Exam
General: Resting comfortably in bed, no acute distress. Well-appearing.
Heart: Regular rate and rhythm. No murmurs appreciated.
Lungs: Clear and equal to auscultation bilaterally. Nonlabored breathing.
GI: Abdomen soft, distended, with mild tenderness to palpation diffusely. Infrequent bowel sounds, normal in quality.
Neuro: Awake, alert, oriented.
Results
WBC 13.1 10^3/uL (4.8-10.8) H 04/26/24 04:43
Hgb 8.6 g/dL (13.0-18.0) L 04/26/24 04:43
Hct 25.5 % (39.0-52.0) L 04/26/24 04:43
MCV 79.9 fL (80.0-94.0) L 04/26/24 04:43
Plt Count 462 10^3/uL (130-400) H 04/26/24 04:43
Absolute Neuts (auto) 9.8 10^3/uL (1.4-6.5) H 04/26/24 04:43
Sodium 137 mmol/L (135-145) 04/26/24 04:43
Potassium 4.1 mmol/L (3.5-5.1) D 04/26/24 04:43
Chloride 101 mmol/L (98-107) 04/26/24 04:43
Carbon Dioxide 27 mmol/L (22-30) 04/26/24 04:43
BUN 16 mg/dl (9-20) 04/26/24 04:43
Creatinine 0.8 mg/dL (0.7-1.3) 04/26/24 04:43
Calcium 8.2 mg/dl (8.4-10.2) L 04/26/24 04:43
Total Bilirubin 0.8 mg/dl (0.2-1.3) 04/26/24 04:43
AST 22 U/L (17-59) 04/26/24 04:43
ALT 31 U/L (0-50) 04/26/24 04:43
Alkaline Phosphatase 83 U/L (38-126) 04/26/24 04:43
Lipase 93 U/L (23-300) 04/25/24 17:18
Diagnostic Image Results:
Abdomen/Pelvis CT 04/25/24
IMPRESSION:
1. Moderate circumferential wall thickening and submucosal edema throughout a long segment of ileal small bowel in the right lower quadrant of the abdomen located proximal to an ileocolonic anastomosis. Diagnostic possibilities are (1) acute small
bowel ischemia, (2) acute inflammatory bowel disease, (3) an acute infectious ileitis, (4) acute angioedema, or (5) acute vasculitis/connective tissue disease.
2. Moderate fluid distention of more proximal small bowel loops demonstrate mucosal hyperenhancement which could be secondary to an acute infectious enteritis or ileus.
3. Small volume of abdominal and pelvic ascites.
4. Recent right hemicolectomy.
5. Moderate diffuse hepatic steatosis and mild hepatomegaly.
6. Moderate to severe enlargement of the prostate gland.
Prior GI Procedures:
EGD:
None
Colonoscopy:
08/2023- ulcerated 5cm cecal mass suspicious of cancer. Final pathology negative.
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
Surgical Pathology Report:
A. Terminal ileum and cecum, resection:
- Giant inflammatory polyp (2.1 cm).
- Colonic mucosa with hyperplastic changes.
- Focal acute appendicitis.
- Three benign lymph nodes.
- Viable resection margins.
Assessment / Plan
-
Impression:
Enteritis and partial bowel obstruction at site of anastomosis, likely secondary to acute ischemia. This is consistent with presentation and CT findings of bowel wall thickening with distension proximal to anastomosis. Less likely to be acute
inflammatory bowel disease given lack of prior symptoms and pathology findings. Do not suspect acute infectious ileitis at this time given CT findings.
Plan:
-Patient to remain NPO. Will place NG tube to low-intermediate suction for decompression. Plan to continue NPO/decompression until nausea improves.
-Agree with IV hydration and symptomatic treatment.
-Agree with empiric antibiotics for prevention of infection superimposed on ischemic bowel.
Further recommendations pending attending evaluation.
-
-
Thank you for consultation and allowing me to participate in the patient's care. Please call the cold reduction roller GI physician during the after hours with any questions or concerns.
[2024-04-26 15:05] VITALS: BP 147/86
--- NOTE | 2024-04-26 16:25 | W.PN.UPDATE ---
Update Note
Progress Note Update
20 [place] NG tube placed in right naris without difficulty, immediate 1.5 L of bilious fluid, patient feeling better. Secured with tape at the naris. Will check x-ray.
[2024-04-26] MEDS: XYLOCAINE VISCOUS CUP 15 ML PO (18:09)
[2024-04-26 23:26] VITALS: BP 143/87
[2024-04-27] MEDS: NSS 1000 IV (02:15)
[2024-04-27] MEDS: ZOSYN 50 IV ×4 (02:15→20:00)
--- NOTE | 2024-04-27 06:52 | W.PN.GI.CBS2 ---
Today's Communication / Plan
-
Please see assessment and plan for details.
Assessment / Plan
-
1. Partial small bowel obstruction: Secondary to significant enteritis at the level of the anastomosis, likely more relative ischemia, though after NG tube decompression feeling much better. Exam is much improved, has no significant tenderness or
fever. Will await morning labs, though white count was improved yesterday. I again discussed personally with pathology, there is no suggestion of inflammatory bowel disease on the specimen, the question was only raised given the presence of an
inflammatory polyp, and this seems very unlikely acutely in the postoperative setting. Will add Protonix given some blood-tinged output secondary to NG tube trauma, continue low intermittent suction. If obstruction series in the morning is
improving and NG tube output is decreasing could clamp NG tube, though will defer to surgery.
We will sign off for now, please call back with any further questions.
Subjective
Subjective
Date of Service: April 27, 2024
Patient feeling much better overall, almost 3 L of fluid output since yesterday evening. No flatus or bowel movements yet but does feel some vomiting and overall much better, with minimal discomfort, no fevers or chills. Output was initially
bilious, now with some blood-tinged.
Objective
Data Reviewed
Laboratory Data:
Laboratory Results
Magnesium 2.6 mg/dl (1.6-2.3) H 04/26/24 04:43
Total Bilirubin 0.8 mg/dl (0.2-1.3) 04/26/24 04:43
AST 22 U/L (17-59) 04/26/24 04:43
ALT 31 U/L (0-50) 04/26/24 04:43
Alkaline Phosphatase 83 U/L (38-126) 04/26/24 04:43
Lipase 93 U/L (23-300) 04/25/24 17:18
Vital Signs and I&O:
Vital Signs
Temp Pulse Resp BP Pulse Ox
97.7 F 87 17 143/87 93
04/26/24 23:26 04/26/24 23:26 04/26/24 23:26 04/26/24 23:26 04/26/24 23:26
I&O
04/25/24 04/26/24 04/27/24
06:59 06:59 06:59
Output Total 2650 / 2650
Balance -2650 / -2650
Physical Exam
Physical Exam
General: NAD
Abdomen: Few normal bowel sounds, much softer, no tenderness, fullness in the right lower quadrant
[2024-04-27 07:03] LABS: Hematocrit 25.8 % (39.0-52.0); Hemoglobin 8.8 g/dL (13.0-18.0); Mean Corp Hgb Conc. 34.1 g/dL (33.0-37.0); Mean Corpuscular Hgb 27.2 pg (27.0-31.0); Mean Corpuscular Volume 79.6 fL (80.0-94.0); Mean Platelet Volume 9.7 fL (7.4-10.4); Platelet Count 537 10^3/uL (130-400); Red Blood Cell Count 3.24 10^6/uL (4.70-6.10); Red Cell Dist. Width 13.6 % (11.5-14.5); White Blood Cell Count 9.6 10^3/uL (4.8-10.8)
[2024-04-27 07:18] VITALS: BP 150/85
[2024-04-27 08:06] LABS: Blood Urea Nitrogen 18 mg/dl (9-20); Calcium 8.6 mg/dl (8.4-10.2); Carbon Dioxide 32 mmol/L (22-30); Chloride 101 mmol/L (98-107); Estimated Creatinine Clearance 101 ml/min; Glucose 106 mg/dl (70-99); Sodium 143 mmol/L (135-145); eGFR > 60.00
[2024-04-27] MEDS: NSS (PRESERVATIVE FREE) 10 ML IV (08:39)
[2024-04-27] MEDS: ZESTRIL PO (08:40)
[2024-04-27] MEDS: PROTONIX IV 40 MG IV (08:40)
[2024-04-27] MEDS: D5/0.45%NSS with KCL 20 MEQ 1000 IV ×2 (08:40→20:04)
[2024-04-27] MEDS: PROCARDIA XL (EXTENDED RELEASE) PO (08:40)
[2024-04-27] MEDS: FLOMAX PO (08:41)
--- NOTE | 2024-04-27 10:05 | W.PN.UPDATE ---
Update Note
Progress Note Update
Pt is awake in bed with no complaints. Family in attendance. No flatus; NG output close to 3 liters. Abdomen soft, tender at incision site.
Plan continued NG suction, NPO, ambulate, compression TEDS and spirometry. Await return of bowel function.
Judith Fitch covering for Amado Lee MD.
[2024-04-27 14:58] VITALS: BP 141/90
[2024-04-27 23:00] VITALS: BP 135/81
[2024-04-28] MEDS: ZOSYN 50 IV ×4 (02:22→20:20)
[2024-04-28] MEDS: D5/0.45%NSS with KCL 20 MEQ 1000 IV ×3 (04:38→23:56)
--- NOTE | 2024-04-28 05:38 | PTCARENOTE ---
EPIC SPECIALIST notified concerning NGtube, the need to be advance further per CT scan. Abd sounds are heard while assessing the placement of NGtube and bile content being produce. Continues to be in low intermediate suction. Q4 irrigation done per order. No GI
symptoms noted.
[2024-04-28 06:09] LABS: Hematocrit 27.6 % (39.0-52.0); Hemoglobin 8.9 g/dL (13.0-18.0); Mean Corp Hgb Conc. 32.2 g/dL (33.0-37.0); Mean Corpuscular Hgb 27.1 pg (27.0-31.0); Mean Corpuscular Volume 83.9 fL (80.0-94.0); Platelet Count 581 10^3/uL (130-400); Red Blood Cell Count 3.29 10^6/uL (4.70-6.10); Red Cell Dist. Width 13.8 % (11.5-14.5); White Blood Cell Count 16.3 10^3/uL (4.8-10.8)
[2024-04-28 06:17] LABS: Blood Urea Nitrogen 14 mg/dl (9-20); Calcium 8.7 mg/dl (8.4-10.2); Carbon Dioxide 28 mmol/L (22-30); Chloride 103 mmol/L (98-107); Estimated Creatinine Clearance > 125 ml/min; Glucose 130 mg/dl (70-99); Potassium 4.1 mmol/L (3.5-5.1); Sodium 140 mmol/L (135-145); eGFR > 60.00
[2024-04-28 07:31] VITALS: BP 144/93
--- NOTE | 2024-04-28 08:42 | W.PN.UPDATE ---
Update Note
Progress Note Update
The patient is post-op day #10 S/P ileocecectomy for a benign ulcerated lesion of the cecum. He developed post op bleeding prolonging his initial hospital course. The
bleeding resolved after two doses of tranexemic acid but he presented 2 days after discharge with distention, nausea, and vomiting. He required an NG tube which is
still in place. He has no complaints and has been ambulating. NG output is down, but still too high to clamp. NGT is in proximal stomach, but functioning well so will
leave in place. Still with multiple dilated bowel loops on flat plate yesterday. Continue NPO, IV fluids, NGT decompression, anti-embolism therapy and ambulation.
WBC increased today, but no fever. Continues on anti-biotic therapy as well.
[2024-04-28] MEDS: NSS (PRESERVATIVE FREE) 10 ML IV (08:45)
[2024-04-28] MEDS: PROTONIX IV 40 MG IV (08:45)
[2024-04-28] MEDS: ZESTRIL PO (08:46)
[2024-04-28] MEDS: FLOMAX PO (08:46)
[2024-04-28] MEDS: PROCARDIA XL (EXTENDED RELEASE) PO (08:46)
--- NOTE | 2024-04-28 14:56 | CM ---
Initial assessment completed with patient who lives with his in a 1 story home with basement and 2 steps to enter. DME in home are crutches, W/[facility] and SPC. Patient does not use any. No in home services. [employer] was independent, drove and worked.
No history of psychiatric hospitalizations. Pharmacy is [facility] in [place] and PCP is Dr. Srinivas Liang. Anticipate no needs at discharge.
[2024-04-28 15:02] VITALS: BMI 36.2
[2024-04-28 15:30] VITALS: BP 143/82
[2024-04-28 23:00] VITALS: BP 138/88
[2024-04-29] MEDS: ZOSYN 50 IV ×4 (02:55→20:07)
[2024-04-29 07:30] VITALS: BP 135/91
[2024-04-29] MEDS: ZESTRIL PO (07:30)
[2024-04-29] MEDS: FLOMAX PO (07:30)
[2024-04-29] MEDS: PROCARDIA XL (EXTENDED RELEASE) PO (07:30)
[2024-04-29] MEDS: D5/0.45%NSS with KCL 20 MEQ IV (07:58)
[2024-04-29] MEDS: PROTONIX IV 40 MG IV (08:02)
[2024-04-29] MEDS: NSS (PRESERVATIVE FREE) 10 ML IV (08:02)
[2024-04-29] MEDS: D5/0.45%NSS with KCL 20 MEQ 1000 IV ×3 (08:02→20:07)
[2024-04-29 08:31] LABS: Hematocrit 27.8 % (39.0-52.0); Hemoglobin 9.1 g/dL (13.0-18.0); Mean Corp Hgb Conc. 32.7 g/dL (33.0-37.0); Mean Corpuscular Hgb 26.9 pg (27.0-31.0); Mean Corpuscular Volume 82.2 fL (80.0-94.0); Mean Platelet Volume 9.8 fL (7.4-10.4); Platelet Count 614 10^3/uL (130-400); Red Blood Cell Count 3.38 10^6/uL (4.70-6.10); White Blood Cell Count 14.2 10^3/uL (4.8-10.8)
[2024-04-29 08:44] LABS: Blood Urea Nitrogen 9 mg/dl (9-20); Calcium 8.4 mg/dl (8.4-10.2); Carbon Dioxide 27 mmol/L (22-30); Chloride 102 mmol/L (98-107); Estimated Creatinine Clearance > 125 ml/min; Glucose 112 mg/dl (70-99); Potassium 4.1 mmol/L (3.5-5.1); Sodium 137 mmol/L (135-145); eGFR > 60.00
[2024-04-29 14:47] LABS: ALT (SGPT) 28 U/L (0-50); AST (SGOT) 27 U/L (17-59); Albumin 3.1 g/dl (3.5-5.0); Alkaline Phosphatase 78 U/L (38-126); Blood Urea Nitrogen 8 mg/dl (9-20); Calcium 8.6 mg/dl (8.4-10.2); Carbon Dioxide 24 mmol/L (22-30); Chloride 104 mmol/L (98-107); Estimated Creatinine Clearance > 125 ml/min; Glucose 100 mg/dl (70-99); Magnesium 2.1 mg/dl (1.6-2.3); Phosphorus 3.4 mg/dl (2.5-4.5); Potassium 3.9 mmol/L (3.5-5.1); Sodium 137 mmol/L (135-145); Total Bilirubin 0.6 mg/dl (0.2-1.3); Total Protein 5.7 g/dl (6.3-8.2); Triglycerides 174 mg/dl (10-149); eGFR > 60.00
[2024-04-29 15:20] VITALS: BP 130/84
[2024-04-29 17:49] VITALS: BMI 35.2
[2024-04-29 17:50] LABS: Glucose - Point of Care 126 mg/dl (70-99)
--- NOTE | 2024-04-29 19:45 | VATNOTE ---
Rt. DL Picc placed earlier today, tip read rt. [facility]. Retracted 4cm's per Radiology. per protocol, diana. jurgen. quality control checker aware.
[2024-04-29 23:00] VITALS: BP 123/79
[2024-04-30] MEDS: ZOSYN 50 IV ×4 (02:29→21:10)
[2024-04-30] MEDS: D5/0.45%NSS with KCL 20 MEQ 1000 IV ×2 (04:53→13:16)
[2024-04-30 05:30] LABS: Hematocrit 26.1 % (39.0-52.0); Hemoglobin 8.7 g/dL (13.0-18.0); Mean Corp Hgb Conc. 33.3 g/dL (33.0-37.0); Mean Corpuscular Hgb 27.1 pg (27.0-31.0); Mean Corpuscular Volume 81.3 fL (80.0-94.0); Mean Platelet Volume 9.5 fL (7.4-10.4); Platelet Count 557 10^3/uL (130-400); Red Blood Cell Count 3.21 10^6/uL (4.70-6.10); Red Cell Dist. Width 13.9 % (11.5-14.5); White Blood Cell Count 12.1 10^3/uL (4.8-10.8)
[2024-04-30 05:51] LABS: Blood Urea Nitrogen 7 mg/dl (9-20); Calcium 8.5 mg/dl (8.4-10.2); Carbon Dioxide 25 mmol/L (22-30); Chloride 104 mmol/L (98-107); Estimated Creatinine Clearance > 125 ml/min; Glucose 114 mg/dl (70-99); Magnesium 2.1 mg/dl (1.6-2.3); Phosphorus 3.8 mg/dl (2.5-4.5); Sodium 135 mmol/L (135-145); eGFR > 60.00
[2024-04-30 06:15] VITALS: BMI 34.9
[2024-04-30 07:58] VITALS: BP 152/91
[2024-04-30] MEDS: FLOMAX 0.4 MG PO (08:19)
[2024-04-30] MEDS: ZESTRIL 40 MG PO (08:19)
[2024-04-30] MEDS: NSS (PRESERVATIVE FREE) 10 ML IV (08:20)
[2024-04-30] MEDS: PROCARDIA XL (EXTENDED RELEASE) 30 MG PO (08:20)
[2024-04-30] MEDS: PROTONIX IV 40 MG IV (08:21)
[2024-04-30] MEDS: FLUSH (NSS) 3 FLUSH IV (08:21)
--- NOTE | 2024-04-30 10:39 | W.PN.GENERIC ---
Addendum entered and electronically signed by Amado Lee MD 05/04/24 09:09:
The patient has mild malnutrition. Therefore, we will start TPN until his bowel function returns
Original Note:
Assessment / Plan
-
S/p right colectomy - now with PSBO with SB enteritis
Slowly improving
It has been almost 2 weeks since any nutrition. Will start TPN
Continue to ambulate with NTG clamped.
Continue currently care.
Physician Progress Note
Subjective
No complaints. No N/V. Had a few BMs and also NGT ouput significantly decreased
Objective
Vital Signs
Temp Pulse Resp BP Pulse Ox
97.9 F 74 18 152/91 97
04/30/24 07:58 04/30/24 07:58 04/30/24 07:58 04/30/24 07:58 04/30/24 07:58
Lab Results
04/30/24 04:59
04/30/24 04:59
Abdomen - soft, ND, NT. Incision - CDI
[2024-04-30 15:00] VITALS: BP 116/75
[2024-04-30 18:18] LABS: Glucose - Point of Care 114 mg/dl (70-99)
[2024-04-30] MEDS: Parenteral Nutrition, Central 1512 IV (21:10)
[2024-04-30] MEDS: NSS 1000 IV (21:10)
[2024-04-30 23:00] VITALS: BP 124/78
[2024-05-01 00:08] LABS: Glucose - Point of Care 112 mg/dl (70-99)
[2024-05-01] MEDS: ZOSYN 50 IV ×2 (01:31→08:36)
[2024-05-01 05:53] LABS: ALT (SGPT) 39 U/L (0-50); AST (SGOT) 35 U/L (17-59); Albumin 3.1 g/dl (3.5-5.0); Alkaline Phosphatase 62 U/L (38-126); Blood Urea Nitrogen 6 mg/dl (9-20); Calcium 8.7 mg/dl (8.4-10.2); Carbon Dioxide 23 mmol/L (22-30); Chloride 107 mmol/L (98-107); Estimated Creatinine Clearance > 125 ml/min; Glucose 108 mg/dl (70-99); Magnesium 2.2 mg/dl (1.6-2.3); Phosphorus 3.9 mg/dl (2.5-4.5); Potassium 4.3 mmol/L (3.5-5.1); Sodium 135 mmol/L (135-145); Total Bilirubin 0.6 mg/dl (0.2-1.3); Total Protein 5.6 g/dl (6.3-8.2); Triglycerides 192 mg/dl (10-149); eGFR > 60.00
[2024-05-01 07:00] VITALS: BP 121/79
--- NOTE | 2024-05-01 08:27 | W.PN.GENERIC ---
Assessment / Plan
-
A/P. PSBO
Clinically improving.
Will clamp NGT and check the residual
Continue to ambulate
Continue TPN
Physician Progress Note
Subjective
NO complaints. No nausea and vomiting. Had more BMs and NGT output continues to decrease
Objective
Vital Signs
Temp Pulse Resp BP Pulse Ox
97.6 F 77 18 121/79 96
05/01/24 07:00 05/01/24 07:00 05/01/24 07:00 05/01/24 07:00 05/01/24 07:00
Lab Results
04/30/24 04:59
05/01/24 05:13
Abdomen - soft ND NT
[2024-05-01] MEDS: PROCARDIA XL (EXTENDED RELEASE) PO (08:35)
[2024-05-01] MEDS: ZESTRIL PO (08:35)
[2024-05-01] MEDS: FLOMAX PO (08:35)
[2024-05-01] MEDS: NSS (PRESERVATIVE FREE) 10 ML IV (08:36)
[2024-05-01] MEDS: PROTONIX IV 40 MG IV (08:36)
[2024-05-01 12:27] LABS: Glucose - Point of Care 110 mg/dl (70-99)
[2024-05-01] MEDS: NSS 1000 IV (12:32)
--- NOTE | 2024-05-01 12:47 | PN.CDI ---
CDI
- -
CDI:
Physician Documentation Request
Admit Date: 04/25/24 22:14
Dear Doctor Jesus,
Patient admitted for bowel obstruction.
04/29 Vehicle Dynamics Engineer Assessment: 'Significant 7.4 wt loss x past 1 month....Pt meets criteria for severe protein calorie malnutrition of chronic illness with prolonged inadequate intake over the past 1 month ( due to NPO/CL diet, N/V) with
resultant significant weight loss >5% x 1month.'
Based on the above information and your assessment, which of the following most accurately represents the patient's nutritional status?
Severe protein calorie malnutrition
Other
[place] Criteria ([facility] Hospitalist 2017)
2 or more criteria must be present for either
non severe or severe malnutrition
Note that the criteria differs related to the
presence of an acute or chronic illness
Acute Illness Chronic Illness
Energy Intake Non Severe: <75% for >7 days Non Severe: <75% for >1 month
Severe: <50% for >5 days Severe: <75% for >1 month
Weight Loss Non Severe: 1-2% over 1 week Non Severe: 5% over 1 month
5% over 1 month 7.5% over 3 months
7.5% over 3 months 10% over 6 months
1 year N/A 20% over 1 year
Severe: >2% over 1 week Severe: >5% over 1 month
>5% over 1 month >7.5% over 3 months
>7.5% over 3 months >10% over 6 months
1 year N/A >20% over 1 year
Body Fat Non Severe: Mild Decrease Non Severe: Mild Loss
Severe: Moderate Decrease Severe: Severe Loss
Muscle Mass Non Severe: Mild Decrease Non Severe: Mild Loss
Severe: Moderate Decrease Severe: Severe Loss
Fluid Accumulation Non Severe: Mild Accumulation Non Severe: Mild Accumulation
Severe: Moderate to severe Severe: Moderate to severe
accumulation accumulation
Reduced Dry Wall Installations Mechanic Strength Non Severe: N/A Non Severe: N/A
Severe: Measurably reduced Severe: Measurably reduced
Additional criteria that can be used to Determine if Mild or Moderate Malnutrition (Merck Manual 2018)
Mild Moderate Severe
Albumin gm/dl <3.0 gm/dl <2.5 gm/dl <2.0 gm/dl
Pre Albumin mg/dl <15 gm/dl <10 mg/dl <5.0 mg/dl
BMI <18.5 <17 <16
Use of terms such as suspected, likely, concern for, or probable (associated with a specific diagnosis that is being evaluated, monitored, or treated as if it exists) are acceptable and can be coded in the inpatient setting, when documented at the
time of discharge.
Thank you,
Micaela Centeno RN, BSN
CDI Specialist
Available via [place] text
Please use your independent medical judgment in providing your response.
--- NOTE | 2024-05-01 14:32 | CM ---
Colectomy, NG clamped, TPN. Will continue to follow for medical progression and assess for Discharge Plan of Care.
[2024-05-01 15:05] VITALS: BP 131/84
[2024-05-01 18:32] LABS: Glucose - Point of Care 111 mg/dl (70-99)
[2024-05-01] MEDS: Parenteral Nutrition, Central 2000 IV (21:33)
[2024-05-01 23:00] VITALS: BP 132/73
[2024-05-01 23:50] LABS: Glucose - Point of Care 127 mg/dl (70-99)
[2024-05-02 04:55] LABS: % Basophils 0.4 % (0-2); % Immature Granulocytes 8.5 % (0-0.5); % Lymphocytes 14.6 % (20.5-51.1); % Monocytes 8.6 % (1.7-9.3); % Neutrophils 65.9 % (42.2-75.2); Absolute Eosinophils 0.2 10^3/uL (0-0.7); Absolute Immature Granulocytes 0.8 10^3/uL (0-0.05); Absolute Lymphocytes 1.4 10^3/uL (1.2-3.4); Absolute Monocytes 0.8 10^3/uL (0.1-0.6); Absolute Neutrophils 6.4 10^3/uL (1.4-6.5); Hematocrit 28.8 % (39.0-52.0); Hemoglobin 9.5 g/dL (13.0-18.0); Mean Corpuscular Hgb 27.2 pg (27.0-31.0); Mean Corpuscular Volume 82.5 fL (80.0-94.0); Mean Platelet Volume 9.8 fL (7.4-10.4); Nucleated Red Blood Cells % 0.4 % (-); Platelet Count 495 10^3/uL (130-400); Red Blood Cell Count 3.49 10^6/uL (4.70-6.10); Red Cell Dist. Width 14.2 % (11.5-14.5); White Blood Cell Count 9.7 10^3/uL (4.8-10.8)
[2024-05-02 05:39] LABS: Glucose - Point of Care 144 mg/dl (70-99)
[2024-05-02 05:47] LABS: Blood Urea Nitrogen 7 mg/dl (9-20); Calcium 8.9 mg/dl (8.4-10.2); Carbon Dioxide 23 mmol/L (22-30); Chloride 107 mmol/L (98-107); Estimated Creatinine Clearance > 125 ml/min; Glucose 115 mg/dl (70-99); Magnesium 2.3 mg/dl (1.6-2.3); Phosphorus 3.3 mg/dl (2.5-4.5); Potassium 4.3 mmol/L (3.5-5.1); Sodium 137 mmol/L (135-145); eGFR > 60.00
[2024-05-02 06:01] VITALS: BMI 34.2
[2024-05-02 07:45] VITALS: BP 138/83
[2024-05-02] MEDS: FLOMAX 0.4 MG PO (07:50)
[2024-05-02] MEDS: PROCARDIA XL (EXTENDED RELEASE) 30 MG PO (07:50)
[2024-05-02] MEDS: ZESTRIL 40 MG PO (07:50)
[2024-05-02] MEDS: PROTONIX IV 40 MG IV (07:52)
[2024-05-02] MEDS: NSS (PRESERVATIVE FREE) 10 ML IV (07:52)
[2024-05-02 12:14] LABS: Glucose - Point of Care 131 mg/dl (70-99)
[2024-05-02 15:27] VITALS: BP 116/69
--- NOTE | 2024-05-02 15:32 | CM ---
TPN, NGT clamped. Anticipate will need HH VN after discharge. Will get preferences.
[2024-05-02 18:49] LABS: Glucose - Point of Care 126 mg/dl (70-99)
[2024-05-02] MEDS: Parenteral Nutrition, Central 2000 IV (21:03)
[2024-05-02 23:00] VITALS: BP 118/65
[2024-05-03 00:20] LABS: Glucose - Point of Care 116 mg/dl (70-99)
[2024-05-03 06:06] LABS: Glucose - Point of Care 125 mg/dl (70-99)
[2024-05-03 06:53] VITALS: BMI 34.2
[2024-05-03 07:00] VITALS: BP 128/75
[2024-05-03] MEDS: PROCARDIA XL (EXTENDED RELEASE) 30 MG PO (09:32)
[2024-05-03] MEDS: FLOMAX 0.4 MG PO (09:32)
[2024-05-03] MEDS: ZESTRIL 40 MG PO (09:32)
[2024-05-03] MEDS: PROTONIX IV 40 MG IV (09:32)
[2024-05-03] MEDS: NSS (PRESERVATIVE FREE) 10 ML IV (09:33)
[2024-05-03 12:07] LABS: Glucose - Point of Care 126 mg/dl (70-99)
--- NOTE | 2024-05-03 13:08 | CM ---
NGT out. Patient ambulating in hallways with . Anticipate no needs at discharge. Patient and declined VN services.
--- NOTE | 2024-05-03 13:13 | CM ---
TPN, NGT out. Patient ambulating in hallways with . Need to determine if TPN will continue at discharge. Patient and declined VN services.
[2024-05-03 15:05] VITALS: BP 116/70
--- NOTE | 2024-05-03 15:39 | W.DS.TRANS ---
DC Summary - Infusion Therapy Nurse
-
Discharge Instructions:
Discharge Diagnosis/Procedures Small bowel obstruction
Diet Low Residue
Activity As tolerated
Driving Restrictions ok to drive
Bathing Restrictions None
Instructions:
Stand-Alone Forms:
Changes to Home Medications: No
Discharge Medications:
DC Medications w/original date entered in [employer]
acetaminophen 650 mg tablet,extended release 1,300 mg PO DAILYPRN PRN mild pain 04/13/24
cholecalciferol (vitamin D3) 25 mcg (1,000 unit) tablet (Vitamin D3) 25 mcg PO DAILY Supplement ##0 04/13/24
lisinopril 40 mg tablet 40 mg PO DAILY Blood Pressure 04/13/24
multivitamin with minerals-folic acid 0.4 mg tablet 1 tab PO DAILY Supplement 04/13/24
nifedipine 30 mg tablet,extended release 30 mg PO DAILY Blood Pressure 04/13/24
tamsulosin 0.4 mg capsule 0.4 mg PO DAILY Urinary Issue 04/13/24
zinc acetate 50 mg (zinc) capsule 50 mg PO DAILY Supplement 04/13/24
vitamin E 268 mg (400 unit) capsule 268 mg PO DAILY Supplement 04/25/24
Home Medication Changes
Pending Results: No
--- NOTE | 2024-05-03 16:01 | CM ---
Addendum entered by Bowen Boswell 05/03/24 16:04:
TPN has been discontinued.
Original Note:
Patient has been medically cleared for discharge to home with no additional skilled services. Patient and have declined VN services. will transport home.
== END 2024-05-03 17:20 | disposition home or self-care (01) | DRG 388 ==
LOC: 2 SOUTH 22:14
PROVIDERS: Clinical Nurse Specialist Family Health; Emergency Medicine; Nurse Practitioner Gerontology; ADMITTING PHYSICIAN Surgery; CONSULT PHYSICIAN Internal Medicine Gastroenterology; EMERGENCY PHYSICIAN Emergency Medicine; FAMILY PHYSICIAN Internal Medicine; OTHER PHYSICIAN Surgery
DX: K56.600 Partial intestinal obstruction, unspecified as to cause (principal); K55.059 Acute (reversible) ischemia of intestine, part and extent unspecified; E44.1 Mild protein-calorie malnutrition; K52.9 Noninfective gastroenteritis and colitis, unspecified; Z68.34 Body mass index [BMI] 34.0-34.9, adult
CPT/HCPCS: 71045; 74019; 74022; 74177; 80048; 80053; 82962; 83605; 83690; 83735; 84100; 84478; 85025; 85027; 86850; 86900; 86901; 96361; 96374; 96375; 99285; Q9967

== ENCOUNTER → 2024-05-08 12:59 | Outpatient (REF) | payer BC, SELFPAY | LOC: RAD 12:59 | PROVIDERS: ATTENDING PHYSICIAN Surgery; FAMILY PHYSICIAN Internal Medicine | DX: I82.401 Acute embolism and thrombosis of unspecified deep veins of right lower extremity (principal) | CPT/HCPCS: 93971 ==

== ENCOUNTER → 2025-03-12 06:45 | Outpatient (REF) | payer BC, SELFPAY | LOC: RAD 06:45 | PROVIDERS: ATTENDING PHYSICIAN Surgery; FAMILY PHYSICIAN Internal Medicine | DX: C43.62 Malignant melanoma of left upper limb, including shoulder (principal) | CPT/HCPCS: 71260; 74177; Q9967 ==

== ENCOUNTER 2025-06-29 06:31 | Day surgery (SDC) | payer BC, SELFPAY ==
[2025-06-18 09:12] LABS: Hematocrit 42.6 % (39.0-52.0); Hemoglobin 14.5 g/dL (13.0-18.0); Mean Corp Hgb Conc. 34.0 g/dL (33.0-37.0); Mean Corpuscular Volume 82.6 fL (80.0-94.0); Platelet Count 340 10^3/uL (130-400); Red Cell Dist. Width 13.2 % (11.5-14.5)
[2025-06-18 09:29] LABS: Blood Urea Nitrogen 14 mg/dl (9-20); Calcium 9.6 mg/dl (8.4-10.2); Carbon Dioxide 25 mmol/L (22-30); Chloride 104 mmol/L (98-107); Glucose 91 mg/dl (70-99); Potassium 4.4 mmol/L (3.5-5.1); Sodium 136 mmol/L (135-145); eGFR > 60.00
[2025-06-18 11:15] VITALS: BMI 39.3
[2025-06-29] VITALS (9 sets, daily range): BP systolic 124–152; BP diastolic 71–83; BMI 39.3
[2025-06-29] MEDS: NORMOSOL-R/PLASMALYTE-A 1000 IV (09:02)
[2025-06-29] MEDS: TYLENOL 1000 MG PO (09:03)
[2025-06-29] MEDS: DILAUDID 0.5 MG IV (12:01)
[2025-06-29] MEDS: ZOFRAN 4 MG IV (12:52)
== END 2025-06-29 13:20 | disposition home or self-care (01) ==
LOC: SDS 06:31
PROVIDERS: ATTENDING PHYSICIAN Surgery; FAMILY PHYSICIAN Internal Medicine
DX: K43.2 Incisional hernia without obstruction or gangrene (principal)
CPT/HCPCS: 49593; 36415; 80048; 85027; 93005; C1781

== ENCOUNTER → 2025-09-25 06:44 | Outpatient (REF) | payer BC, SELFPAY | LOC: RAD 06:44 | PROVIDERS: ATTENDING PHYSICIAN Surgery; FAMILY PHYSICIAN Internal Medicine | DX: D48.19 Other specified neoplasm of uncertain behavior of connective and other soft tissue (principal) | CPT/HCPCS: 71260; 74177; Q9967 ==